=== PATIENT | male | born 1990 | race American Indian/Alaskan Native ===

== ENCOUNTER 2018-12-21 18:00 | Emergency (ER) | payer OTHER ==
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
[2018-12-21 22:39] VITALS: BP 145/85
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
== END 2018-12-21 23:29 | disposition home or self-care (01) ==
LOC: ED 18:00
DX: M25.512 Pain in left shoulder (principal); M25.561 Pain in right knee; M25.571 Pain in right ankle and joints of right foot; M79.10 Myalgia, unspecified site; V89.2XXA Person injured in unspecified motor-vehicle accident, traffic, initial encounter; Y93.89 Activity, other specified; Y92.410 Unspecified street and highway as the place of occurrence of the external cause; Y99.8 Other external cause status